=== PATIENT | female | born 1990 | race American Indian/Alaskan Native ===

== ENCOUNTER 2017-03-08 12:07 | Emergency (ER) | payer MEDICAID ==
[2017-03-08 12:11] VITALS: BMI 29.7
[2017-03-08 12:14] VITALS: BP 97/70; PULSE 98; RESP 18; TEMP 98.6; O2SAT 99
[2017-03-08] MEDS ORDERED: Penicillin G Benzathine 1.2 Mill Unit/2 ml Syr IM STA (12:59)
--- NOTE | 2017-03-08 13:14 | ED PDOC ---
Arrival/HPI - General Chief Complaint: ENT Problem Time Seen by Provider: 03/08/17 12:29 Historian: Patient - History of Present Illness Narrative History of Present Illness (Text): 03/08/17 13:14 A 26 year old female presents to the emergency department complaining of sore throat for a couple of days. Patient denies of any fever, chills, shortness of breath, rash, or any other complaints. PMD [place] Time/Duration: < week (couple of days) Symptom Onset: Sudden Symptom Course: Unchanged Past Medical History - Provider Review Nursing Documentation Reviewed: Yes - Infectious Disease Hx of Infectious Diseases: None - Psychiatric Hx Substance Use: No - Anesthesia Hx Anesthesia: No Family/Social History - Physician Review Nursing Documentation Reviewed: Yes Family/Social History: No Known Family HX Smoking Status: Never Smoked Hx Alcohol Use: No Hx Substance Use: No Allergies/Home Meds Allergies/Adverse Reactions: Allergies No Known Allergies Allergy (Verified 03/08/17 12:11) Review of Systems - Physician Review All systems were reviewed & negative as marked: Yes - Review of Systems Constitutional: Normal. absent: Fatigue, Weight Change, Fevers, Night Sweats ENT: Normal, Sore Throat. absent: Tinnitus, Rhinorrhea, Epistaxis, Sinus Congestion Respiratory: Normal. absent: SOB, Cough, Sputum, Wheezing Cardiovascular: Normal. absent: Chest Pain, Palpitations, Edema Skin: Normal. absent: Rash, Pruritis, Skin Lesions, Laceration Physical Exam Vital Signs Reviewed: Yes Vital Signs Temp Pulse Resp BP Pulse Ox 03/08/17 12:13 98.6 F 98 H 18 97/70 L 99 Temperature: Afebrile Blood Pressure: Normal Pulse: Regular Respiratory Rate: Normal Appearance: Positive for: Well-Appearing Pain Distress: None Mental Status: Positive for: Alert and Oriented X 3 - Systems Exam Head: Present: Atraumatic, Normocephalic Pupils: Present: PERRL Extroacular Muscles: Present: EOMI Conjunctiva: Present: Normal Ears: Present: Normal, NORMAL TM, Normal Canal. No: Erythema Mouth: Present: Moist Mucous Membranes Pharnyx: Present: Normal, ERYTHEMA (both tonsils), EXUDATE, TONSILS ENLARGED, Other (moderate edema to both tonsils). No: Uvular Deviation Respiratory/Chest: Present: Clear to Auscultation, Good Air Exchange. No: Respiratory Distress, Accessory Muscle Use, Wheezes, Rales, Rhonchi Cardiovascular: Present: Regular Rate and Rhythm, Normal S1, S2. No: Murmurs Neurological: Present: GCS=15, CN II-XII Intact Skin: Present: Warm, Dry, Normal Color. No: Rashes Medical Decision Making ED Course and Treatment: 03/08/17 13:18 Impression: 26 year old female with sore throat. Plan: -- Decardon IM -- Motrin PO -- Bicillin IM -- Reassess and disposition Progress Notes: Diagnosis of pharyngitis d/w the patient. Follow up with primary care physician in 1-2 days without fail. Advised to take medication as prescribed. Return to the emergency room at any time for any new or worsening symptoms. Patient states she fully agrees with and understands discharge instructions. States that she agrees with the plan and disposition. Verbalized and repeated discharge instructions and plan. I have given the patient opportunity to ask any additional questions. - Medication Orders Current Medication Orders: Discontinued Medications Dexamethasone (Decadron Inj) 10 mg IM STAT STA Stop: 03/08/17 13:00 Last Admin: 03/08/17 13:20 Dose: 10 mg IM Administration Charges Document 03/08/17 13:20 AD (Rec: 03/08/17 13:21 AD [id number]) Injection Site MAR Injection Site Left Gluteus Kurt Charges for Administration # of IM Administrations 1 Ibuprofen (Motrin Tab) 600 mg PO STAT STA Stop: 03/08/17 13:01 Last Admin: 03/08/17 13:20 Dose: Not Given Non-Admin Reason: Patient Refused Penicillin G Benzathine (Bicillin L-A Inj) 1,200,000 units IM STAT STA PRN Reason: Protocol Stop: 03/08/17 13:00 Last Admin: 03/08/17 13:37 Dose: 1,200,000 units IM Administration Charges Document 03/08/17 13:37 AD (Rec: 03/08/17 13:38 AD [id number]) Injection Site MAR Injection Site Right Gluteus Kurt Charges for Administration # of IM Administrations 1 - PA / REPORTING COORDINATOR / Resident Statement MD/DO has reviewed & agrees with the documentation as recorded. - Scribe Statement The provider has reviewed the documentation as recorded by the Jennifer Martin Provider Scribe Attestation: All medical record entries made by the Scribe were at my direction and personally dictated by me. I have reviewed the chart and agree that the record accurately reflects my personal performance of the history, physical exam, medical decision making, and the department course for this patient. I have also personally directed, reviewed, and agree with the discharge instructions and disposition. Disposition/Present on Arrival - Present on Arrival Any Indicators Present on Arrival: No History of DVT/PE: No History of Uncontrolled Diabetes: No Urinary Catheter: No History of Decub. Ulcer: No History Surgical Site Infection Following: None - Disposition Have Diagnosis and Disposition been Completed?: Yes Diagnosis: Pharyngitis Disposition: HOME/ ROUTINE Disposition Time: 13:12 Patient Plan: Discharge Condition: STABLE Discharge Instructions (ExitCare): Pharyngitis (ED) Print Language: MARTINIQUAIS Additional Instructions: Thank you for letting us take care of you today. You were treated for pharyngitis. The emergency medical care you received today was directed at your acute symptoms. If you were prescribed any medication, please fill it and take as directed. It may take several days for your symptoms to resolve. Return to the Emergency Department if your symptoms worsen, do not improve, or if you have any other problems. Please contact your doctor in 2 days for re-evaluation and follow up. Bring any paperwork you were given at discharge with you along with any medications you are taking to your follow up visit. Our treatment cannot replace ongoing medical care by a primary care provider (PCP) outside of the emergency department. Thank you for allowing the [facility] team to be part of your care today. Prescriptions: Ibuprofen [Motrin Tab] 600 mg PO QID PRN #20 tab PRN Reason: Pain, Moderate (4-7) Forms: [employer] [facility] (Yakut), WORK NOTE, SCHOOL NOTE
== END 2017-03-08 13:38 | disposition home or self-care (01) ==
LOC: ED 12:07
DX: J02.9 Acute pharyngitis, unspecified (principal)
CPT/HCPCS: 96372; 99283; J0561; J1100

== ENCOUNTER 2018-08-02 15:30 | Outpatient (CLI) | payer MEDICAID | END 2018-08-02 15:31 | disposition home or self-care (01) | LOC: CARDIO 15:30 ==

== ENCOUNTER 2018-10-11 12:44 | Inpatient (IN) | payer MEDICAID ==
[2018-10-11 12:52] VITALS: BMI 29.7
[2018-10-11] MEDS ORDERED: Sodium Chloride 0.9% 1,000 ML IV STA (13:09)
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
[2018-10-11 15:12] LABS: BASO # 0.01 K/mm3 (0.0-2.0); BASO % 0.3 % (0.0-3.0); HEMOGLOBIN 10.2 g/dL (12.0-16.0); LYMPH # 1.1 (1.2-3.4); LYMPH % 37.4 % (22.0-35.0); MEAN CELL VOLUME 84.8 fl (80.0-105.0); MEAN CORPUSCULAR HEMOGLOBIN 26.4 pg (25.0-35.0); MEAN CORPUSCULAR HGB CONC 31.1 g/dl (31.0-37.0); MEAN PLATELET VOLUME 10.2 fl (7.0-11.0); MONO # 0.1 (0.1-0.6); MONO % 3.9 % (1.0-6.0); RBC 3.87 10^6/uL (3.5-6.1); RED CELL DISTRIBUTION WIDTH 14.7 % (11.5-14.5); WHITE BLOOD COUNT 3.1 10^3/uL (4.5-11.0)
[2018-10-11 15:28] LABS: URINE BILIRUBIN NEGATIVE (NEGATIVE); URINE BLOOD NEGATIVE (NEGATIVE); URINE GLUCOSE (UA) NEGATIVE (NEGATIVE); URINE LEUKOCYTE ESTERASE TRACE Leu/uL (NEGATIVE); URINE PROTEIN TRACE mg/dL (<30 mg/dL); URINE UROBILINOGEN 0.2 E.U./dL (<1 E.U./dL)
[2018-10-11 15:29] LABS: URINE APPEARANCE SL CLOUDY (CLEAR); URINE COLOR YELLOW (YELLOW)
[2018-10-11 15:34] LABS: ALB/GLOB RATIO 1.2 (1.1-1.8); BLOOD UREA NITROGEN 15 mg/dL (7-21); CALCIUM 9.5 mg/dL (8.4-10.5); GFR NON-AFRICAN AMERICAN > 60
[2018-10-11 15:35] LABS: HCG,QUALITATIVE URINE NEGATIVE (NEGATIVE); URINE BACTERIA FEW /hpf; URINE WBC 0 - 2 /hpf (0-6)
[2018-10-11 15:55] LABS: BARBITURATES, UR NEGATIVE (NEGATIVE); BENZODIAZEPINES, UR NEGATIVE (NEGATIVE); OPIATES, UR NEGATIVE (NEGATIVE); PHENCYCLIDINE, UR NEGATIVE (NEGATIVE)
--- NOTE | 2018-10-11 16:00 | RAD ---
HISTORY: psych, overdose COMPARISON: None available TECHNIQUE: Chest, one view. FINDINGS: LUNGS: No focal consolidation. Please note that chest x-ray has limited sensitivity for the detection of pulmonary masses. PLEURA: No significant pleural effusion identified. No definite pneumothorax . CARDIOVASCULAR: The cardiomediastinal silhouette appears within normal limits of size. No significant atherosclerotic calcification present. OSSEOUS STRUCTURES: No acute osseous abnormality identified. VISUALIZED UPPER ABDOMEN: Unremarkable. OTHER FINDINGS: None. IMPRESSION: No acute findings.
[2018-10-11 16:20] LABS: INR 1.13; PARTIAL THROMBOPLASTIN TIME 27.6 Seconds (26.9-38.3); PROTHROMBIN TIME 12.5 SECONDS (9.4-12.5)
[2018-10-11 16:24] LABS: VENOUS BLOOD GAS BASE EXCESS -0.2 mmol/L (0.0-2.0); VENOUS BLOOD GAS PO2 48 mm/Hg (30-55); VENOUS BLOOD PH 7.39 (7.32-7.43)
[2018-10-11 16:46] LABS: ALT/SGPT 12 U/L (7-56); AST/SGOT 47 U/L (14-36)
[2018-10-11 18:06] VITALS: O2SAT 99
[2018-10-11 20:07] LABS: VENOUS BLOOD GAS BASE EXCESS -0.8 mmol/L (0.0-2.0); VENOUS BLOOD GAS PO2 43 mm/Hg (30-55); VENOUS BLOOD PH 7.41 (7.32-7.43)
[2018-10-11] MEDS ORDERED: DiphenhydrAMINE 50 mg/ml Inj IM PRN (20:20)
--- NOTE | 2018-10-11 22:30 | PCM.BM ---
<Opal Hancock - Last Filed: 10/11/18 22:27> Treatment Plan Problems - Problems identified on initial assessmt High Risk Suicide Date Initiated: 10/11/18 Time Initiated: 22:28 Assessment reference: NA Status: Active Suicidal Ideation Date Initiated: 10/11/18 Time Initiated: 22:32 Assessment reference: NA Status: Active Ineffective Coping Date Initiated: 10/11/18 Time Initiated: 22:32 Assessment reference: NA Status: Active Hopelessness/helplessness Date Initiated: 10/11/18 Time Initiated: 22:31 Assessment reference: NA Status: Active Mecication Nonadhereance Date Initiated: 10/11/18 Time Initiated: 22:31 Assessment reference: NA Status: Active Self care deficit Date Initiated: 10/11/18 Time Initiated: 22:31 Assessment reference: NA Status: Active Treatment assets and liabiliti Patient Assests: educated, ADL independent, cognitively intact - Milieu Protocol Maintain good personal hygiene: daily Encourage regular showers, daily Remind patient to perform daily oral care, daily Assist patient to perform ADL's, every other day Encourage regular showers, every other day Remind patient to perform daily oral care Maintain personal safety: every other day Educate patient to report safety concerns to staff, every other day Monitor environment for contraband/sharps Medication safety: Monitor for expected outcome, potential side effects: every other day, Assess barriers to learning: every other day, Assess readiness for medication education: every other day <Laura River - Last Filed: 10/12/18 12:26> - Diagnosis (1) Mood disorder Status: Acute Interventions: 10/12/18 12:26 Psychoeducation Psychopharmacology/adjustment of medications as needed/ monitoring possible side effects Monitor blood level of mood stabilizers Evaluate pt on daily basis Compliance with medications and follow up appointments Suicide and homicide risk assessment and prevention, coping strategies, safety plan Relapse prevention Reduction of symptoms Improve functional status Family involvement As outpatient: cognitive behavioral therapy (2) Borderline personality disorder Status: Acute Interventions: 10/12/18 12:26 Psychoeducation Psychopharmacology/adjustment of medications as needed/ monitoring possible side effects Evaluate pt on daily basis Compliance with medications and follow up appointments Suicide and homicide risk assessment and prevention, coping strategies, safety plan Relapse prevention Family involvement As outpatient: Transference-focused psychotherapy/dialectical behavioral therapy/schema therapy Mindfulness skills
[2018-10-12 08:13] LABS: GLUCOSE,FASTING 87 mg/dL (65-110); HDL CHOLESTEROL 58 mg/dL (29-60)
[2018-10-12 08:23] LABS: LDL CHOLESTEROL 80 mg/dL (0-129)
--- NOTE | 2018-10-12 11:44 | CARD ---
APPROVED REPORT Date of service: 10/11/2018 EKG Measurement Heart [id number] <Conclusion> Normal sinus rhythm Nonspecific T wave abnormality Abnormal ECG
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
[2018-10-13 07:02] VITALS: RESP 20
[2018-10-13 07:33] LABS: HEMOGLOBIN 10.3 g/dL (12.0-16.0); MEAN CELL VOLUME 84.7 fl (80.0-105.0); MEAN CORPUSCULAR HEMOGLOBIN 26.2 pg (25.0-35.0); MEAN CORPUSCULAR HGB CONC 30.9 g/dl (31.0-37.0); MEAN PLATELET VOLUME 9.5 fl (7.0-11.0); RBC 3.93 10^6/uL (3.5-6.1); RED CELL DISTRIBUTION WIDTH 14.6 % (11.5-14.5); WHITE BLOOD COUNT 3.6 10^3/uL (4.5-11.0)
[2018-10-13 07:55] LABS: ALB/GLOB RATIO 1.3 (1.1-1.8); ALBUMIN 3.9 g/dL (3.0-4.8); ALT/SGPT 11 U/L (7-56); AST/SGOT 32 U/L (14-36); BLOOD UREA NITROGEN 19 mg/dL (7-21); CALCIUM 9.2 mg/dL (8.4-10.5); GFR NON-AFRICAN AMERICAN > 60
--- NOTE | 2018-10-13 15:42 | PCM.PYCHPN ---
Psychiatric Progress Note - Psychiatric Progress Note Patient seen today, length of contact: 30 minutes Patient Chief Complaint: "I do not want to take medication on regular basis, if it is possible can you prescribed medication as needed?" Problems Identified/Issues Discussed: Previous history, symptoms, medications, risk/benefits/alternatives of medications, coping strategies, suicide prevention. Medical Problems: See HPI Diagnostic Results: 10/13/18 07:15 10/13/18 07:15 Lab Results 10/13/18 07:15: Sodium 140, Potassium 4.1, Chloride 109 H, Carbon Dioxide 26, Anion Gap 9 L, BUN 19, Creatinine 0.7, Est GFR ( Amer) > 60, Est GFR (Non-Af Amer) > 60, Random Glucose 93, Calcium 9.2, Total Bilirubin 0.3, AST 32, ALT 11, Alkaline Phosphatase 50, Total Protein 6.8, Albumin 3.9, Globulin 3.0, Albumin/Globulin Ratio 1.3 10/13/18 07:15: WBC 3.6 L, RBC 3.93, Hgb 10.3 L, Hct 33.3 L, MCV 84.7, MCH 26.2, MCHC 30.9 L, RDW 14.6 H, Plt Count 278, MPV 9.5 10/12/18 07:40: RPR Nonreactive 10/12/18 07:40: TSH 3rd Generation 1.15 10/12/18 07:40: Fasting Glucose 87, Triglycerides 57, Cholesterol 166, LDL Cholesterol Direct 80, HDL Cholesterol 58 10/11/18 20:00: pO2 43, VBG pH 7.41, VBG pCO2 37.0 L, VBG HCO3 23.5, VBG Total CO2 24.6, VBG O2 Sat (Calc) 79.4 H, VBG Base Excess -0.8 L, VBG Potassium 3.6, Glucose 91, Lactate 1.0, FiO2 21.0, Sodium 139.0, Chloride 108.0 H, Venous Blood Potassium 3.6 10/11/18 17:30: Salicylates 17, Acetaminophen 27.0 H 10/11/18 16:15: pO2 48, VBG pH 7.39, VBG pCO2 41.0, VBG HCO3 24.8, VBG Total CO2 26.1, VBG O2 Sat (Calc) 85.9 H, VBG Base Excess -0.2 L, VBG Potassium 3.6, Glucose 97, Lactate 2.0, FiO2 21.0, Crit Value Called To Ana Rosa tai, Crit Value Called By Noy, Blood Gas Notified Time 1624, Sodium 139.0, Chloride 109.0 H, Venous Blood Potassium 3.6 10/11/18 16:06: PT 12.5, INR 1.13, APTT 27.6 10/11/18 15:20: Urine Opiates Screen Negative, Urine Methadone Screen Negative, Ur Barbiturates Screen Negative, Ur Phencyclidine Scrn Negative, Ur Amphetamines Screen Negative, U Benzodiazepines Scrn Negative, U Oth Cocaine Metabols Negative, U Cannabinoids Screen Negative 10/11/18 15:20: Urine Color Yellow, Urine Appearance Sl cloudy, Urine pH 7.0, Ur Specific [place] 1.025, Urine Protein Trace H, Urine Glucose (UA) Negative, Urine Ketones Negative, Urine Blood Negative, Urine Nitrate Negative, Urine Bilirubin Negative, Urine Urobilinogen 0.2, Ur Leukocyte Esterase Trace H, Urine RBC 1 - 3 H, Urine WBC 0 - 2, Ur Epithelial Cells 6 - 8 H, Urine Bacteria Few, Urine Other Uyeast, Urine HCG, Qual Negative 10/11/18 15:07: Alcohol, Quantitative < 10 10/11/18 15:07: Salicylates 17, Acetaminophen 34.0 H 10/11/18 15:07: Sodium 142, Potassium 3.9, Chloride 107, Carbon Dioxide 20 L, Anion Gap 19, BUN 15, Creatinine 0.6 L, Est GFR ( Amer) > 60, Est GFR (Non-Af Amer) > 60, Random Glucose 100, Calcium 9.5, Magnesium 1.6 L, Total Bilirubin 0.4, AST 47 H, ALT 12, Alkaline Phosphatase 46, Total Creatine Kinase 228, Total Protein 7.2, Albumin 4.0, Globulin 3.2, Albumin/Globulin Ratio 1.2 10/11/18 15:07: WBC 3.1 L, RBC 3.87, Hgb 10.2 L, Hct 32.8 L, MCV 84.8, MCH 26.4, MCHC 31.1, RDW 14.7 H, Plt Count 349, MPV 10.2, Neut % (Auto) 58.4, Lymph % (Auto) 37.4 H, Wolfe % (Auto) 3.9, Eos % (Auto) 0.0 L, Baso % (Auto) 0.3, Lymph # (Auto) 1.1 L, Wolfe # (Auto) 0.1, Eos # (Auto) 0.0, Baso # (Auto) 0.01, Absolute Neuts (auto) 1.78 Vital Signs Temp Pulse Resp BP Pulse Ox 10/13/18 07:02 98.3 F 85 20 111/58 L 10/12/18 06:56 97.8 F 98 H 18 96/60 L 10/11/18 22:12 98.8 F 87 18 125/82 99 10/11/18 18:03 98.0 F 66 19 99 10/11/18 18:02 98.6 F 83 19 112/69 100 10/11/18 15:00 98.4 F 89 19 123/78 98 10/11/18 12:52 98.0 F 91 H 19 137/80 98 DSM 5 Symptoms Update: shortly patient is a 28 y/o F brought in by mother for use of excredrin and v odka, r/o suicidal ideation. pt has h/o borderline personality disorder, possible bipolar disorder. pt has multiple psych admissions in the past, h/o being admitted to [facility] August 2016. pt was uncooperative in ED, refused to be examined, combative. pt signed consent for treatment and was admitted for observation/stabilization of possible depression, possible s/p overdose on excedrine, laxatives and ? melatonin. Please see admission note for more detailed information. Patient was seen today and the treatment team meeting, patient presented with improved personal hygiene, affect was brighter, patient has good ADLs. As per staff report vision started to flirt with other patient W,C. Was advised to monitor patient closely. Patient reported that she does not want to be on medications and she would like to have a "holistic approach" patient reported that she is signed out for yoga classes already, patient reported that her mother is supportive, patient has s ome future oriented plans to return back to work. Collateral information was obtained from patient's mother, please see public health social worker notes for more detailed information, shortly patient was doing well for the last year, for the last 6 weeks started to talk to her biological mother who seems to be very verbally abusive, patient was stressed out at work, working long hours, at the same time questionable [employer] incident triggered patient and patient tried to overdose on pills. Patient reported that she does not want to be on any scheduled medications, this business writer offered patient trazodone as needed patient agreed to try this medication. So far patient does not have any behavioral incidents, no aggression, no agitation. Impression: Mood disorder NOS Borderline personality disorder as per history Medication Change: Yes (Risperdal/Paxil discontinued, trazodone started) Medical Record Reviewed: Yes Consults ordered or reviewed: Medical consult appreciated Mental Status Examination - Cognitive Function Orientation: Person, Place, Situation Memory: Intact Attention: WNL Concentration: WNL Association: WNL Fund of Knowledge: WNL - Mood Mood: Depressed - Affect Affect: Other (expanded and inappropriate) - Formal Thought Process Formal Thought Process: No Impairment - Suicidal Ideation Suicidal Ideation: No - Homicidal Ideation Homicidal Ideation: No Goal/Treatment Plan - Goal/Treatment Plan Need for Continued Stay: Remain at risks for inpatient hospitalization, Severe depression anxiety, Discharge may exacerbated symptoms, Severe functional impairment Progress Toward Problem(s) and Goals/Treatment Plan: Milieu/structure/supportive therapy SW consultation for discharge plan and social issues Med management PRN meds collaterals from mother paxil discontinued Risperdal discontinued Trazodone 50 mg at nighttime for depression and insomnia Vistaril as needed for anxiety Follow up on labs Will monitor closely Pt was educated about risk/benefits and alternatives of medications, coping strategies (safety plan, suicide prevention), relapse prevention, importance of follow up with psychiatrist and therapist, stay away from drugs/alcohol/smoking Estimated Date of D/C: 10/14/18
--- NOTE | 2018-10-13 16:34 | PCM.BM ---
Treatment Plan Problems - Problems identified on initial assessmt High Risk Suicide Date Initiated: 10/11/18 Time Initiated: 22:28 Assessment reference: NA Status: Active Priority: 1 Suicidal Ideation Date Initiated: 10/11/18 Time Initiated: 22:32 Assessment reference: NA Status: Active Priority: 2 Ineffective Coping Date Initiated: 10/11/18 Time Initiated: 22:32 Assessment reference: NA Status: Active Priority: 3 Hopelessness/helplessness Date Initiated: 10/11/18 Time Initiated: 22:31 Assessment reference: NA Status: Active Priority: 4 Mecication Nonadhereance Date Initiated: 10/11/18 Time Initiated: 22:31 Assessment reference: NA Status: Active Priority: 5 Self care deficit Date Initiated: 10/11/18 Time Initiated: 22:31 Assessment reference: NA Status: Active Priority: 6 Treatment assets and liabiliti Patient Assests: educated, ADL independent, cognitively intact - Milieu Protocol Maintain good personal hygiene: daily Encourage regular showers, daily Remind patient to perform daily oral care, daily Assist patient to perform ADL's, every other day Encourage regular showers, every other day Remind patient to perform daily oral care Maintain personal safety: every other day Educate patient to report safety concerns to staff, every other day Monitor environment for contraband/sharps Medication safety: Monitor for expected outcome, potential side effects: every other day, Assess barriers to learning: every other day, Assess readiness for medication education: every other day Milieu Narrative: Milieu/structure/supportive therapy SW consultation for discharge plan and social issues Med management PRN meds collaterals from mother paxil discontinued Risperdal discontinued Trazodone 50 mg at nighttime for depression and insomnia Vistaril as needed for anxiety Follow up on labs Will monitor closely Pt was educated about risk/benefits and alternatives of medications, coping strategies (safety plan, suicide prevention), relapse prevention, importance of follow up with psychiatrist and therapist, stay away from drugs/alcohol/smoking Family Contact Family involvement: Family/SO is involved Family contact: Patient agrees to contact Family contact name: Valorie Hwang(mother) Family contacted how many times per week?: 2 Discharge/Continuing Care - Education Needs Education Needs: Patient Medication, Patient Diagnosis/Disease Process, Patient Coping Skills, Patient Community resources, Patient Activities of Daily Living, Patient Nutrition, Patient Uses of Medical Equipment, Patient Health Practices/Safety, Patient Personal Hygiene/Grooming, Patient Aftercare Safety Plan - Discharge Discharge Criteria: Tolerates medication w/o severe side effects, Free of Suicidal thoughts, Free of agitation, Normal sleep pattern, Ability to care for self, Reduction of target symptoms Discharge to:: Home - Treatment Team Participation Patient/Family/SO Statement: Milieu/structure/supportive therapy SW consultation for discharge plan and social issues Med management PRN meds collaterals from mother paxil discontinued Risperdal discontinued Trazodone 50 mg at nighttime for depression and insomnia Vistaril as needed for anxiety Follow up on labs Will monitor closely Pt was educated about risk/benefits and alternatives of medications, coping strategies (safety plan, suicide prevention), relapse prevention, importance of follow up with psychiatrist and therapist, stay away from drugs/alcohol/smoking
[2018-10-14 07:06] VITALS: BP 91/58; PULSE 79; TEMP 98
--- NOTE | 2018-10-14 12:16 | CP.PCM.CON ---
<Iftikhar Alfred - Last Filed: 10/14/18 20:28> History of Present Illness - History of Present Illness History of Present Illness: Iftikhar Alfred DO PGY1 - Internal Medicine Patient is a 28F w/ a PMH of pervious suicide attempts, borderline personality disorder; bipolar disorder admitted to in psych 2/2 suicidal attempt. Medicine is consulted for evaluation of back pain. Patient was seen this morning at bedside with Dr. Hanna Alfred, Dr. Jacqueline Valentine and Psych Unit Staff present. Patient reported that on 08/20 she had liposuction procedure in [place]; She subsequently reported that post procedure she has been feeling a dull pressure like sensation of "fluid accumulating" in her back. Patient reported that this is normal postoperative change for liposuction and her surgeon has told her to wear a compressive dressing and get lymphatic massages whenever she experiences these sensations. Upon evaluation she denies any perineal numbness/tingling, weakness, incontinence, chest pain, sob, abd pain, n/v/d/c. Remainder 12 system neagative PMH: Denies PSH: Liposuction, Tonsillectomy, Social: Occasional EtOH, Denies smoking/ illicit drug use Fam: Unknown, pt. adopted PMD: Ivan Review of Systems - Review of Systems All systems: reviewed and no additional remarkable complaints except Review of Systems: as per HPI Past Patient History - Infectious Disease Hx of Infectious Diseases: None - Past Medical History & Family History Past Medical History?: Yes - Past Social History Smoking Status: Never Smoked - CARDIAC Hx Cardiac Disorders: No - PULMONARY Hx Respiratory Disorders: No - NEUROLOGICAL Hx Neurological Disorder: Yes (Psuedotumor cerebri.) - HEENT Hx HEENT Problems: Yes (Chronic tonsilitis) - RENAL Hx Chronic Kidney Disease: No - ENDOCRINE/METABOLIC Hx Endocrine Disorders: No - HEMATOLOGICAL/ONCOLOGICAL Hx Blood Disorders: No - INTEGUMENTARY Hx Dermatological Problems: Yes Hx Jin: Yes (Left hand skingrafts) - MUSCULOSKELETAL/RHEUMATOLOGICAL Hx Fractures: Yes (Left hand) - GASTROINTESTINAL Hx Gastrointestinal Disorders: Yes (Hx gastric lap band) - GENITOURINARY/GYNECOLOGICAL Hx Genitourinary Disorders: Yes - PSYCHIATRIC Hx Substance Use: No - SURGICAL HISTORY Hx Tonsillectomy: Yes (07/24/2017) - ANESTHESIA Hx Anesthesia: Yes Hx Anesthesia Reactions: No Hx Malignant Hyperthermia: No Meds Home Medications: Home Medication List Medication Instructions Recorded Confirmed Type hydrOXYzine Pamoate [Vistaril] 25 mg PO DAILY PRN #14 cap 10/14/18 Rx traZODone [Desyrel] 50 mg PO HS #14 tab 10/14/18 Rx Allergies/Adverse Reactions: Allergies Allergy/AdvReac Type Severity Reaction Status Date / Time No Known Allergies Allergy Verified 10/11/18 20:19 - Medications Medications: Current Medications Chlorpromazine (Thorazine) 50 mg PO Q6H PRN; Protocol PRN Reason: Agitation Chlorpromazine (Thorazine) 50 mg IM Q6H PRN; Protocol PRN Reason: Agitation Diphenhydramine HCl (Benadryl) 50 mg IM Q6H PRN PRN Reason: Allergy symptoms Diphenhydramine HCl (Benadryl) 50 mg PO Q6 PRN PRN Reason: Allergy symptoms Hydroxyzine Pamoate (Vistaril) 25 mg PO Q8 PRN; Protocol PRN Reason: Anxiety Trazodone HCl (Desyrel) 50 mg PO HS JAJA Last Admin: 10/13/18 21:20 Dose: 50 mg Zaleplon (Sonata) 5 mg PO HS PRN PRN Reason: Insomnia Results - Vital Signs Recent Vital Signs: Last Vital Signs Temp 98.0 F 10/14/18 07:06 Pulse 79 10/14/18 07:06 Resp 20 10/14/18 07:06 BP 91/58 L 10/14/18 07:06 Pulse Ox 99 10/11/18 22:12 - Labs Result Diagrams: 10/13/18 07:15 10/13/18 07:15 Assessment & Plan - Assessment and Plan (Free Text) Assessment: Upon evaluation, Patient would not allow team to perform physical examination. She was advised that back pain continues, she should be further monitored and managed by her PMD, Dr. Love. She was also told her postoperative care regarding liposuction should also be managed by her plastic surgeon or her primary. Patient verbalized understanding of reccomendations. Patient was seen, evaluated, and examined w/ Dr. Hanna Alfred DO PGY1 - Date & Time Date: 10/14/18 Time: 12:17 <Hanna Alfred R - Last Filed: 10/15/18 13:25> Results - Vital Signs Recent Vital Signs: Last Vital Signs Temp 98.0 F 10/14/18 07:06 Pulse 79 10/14/18 07:06 Resp 20 10/14/18 07:06 BP 91/58 L 10/14/18 07:06 Pulse Ox 99 10/11/18 22:12 - Labs Result Diagrams: 10/13/18 07:15 10/13/18 07:15 Attending/Attestation - Attestation I have personally seen and examined this patient.: Yes I have fully participated in the care of the patient.: Yes I have reviewed all pertinent clinical information: Yes Notes (Text): Patient seen and examined by me with resident at approximately 11:40AM on 10/14/18. Case including HPI, physical exam, and assessment and plan discussed wi th resident. Agree with above with following additions/corrections. Patient is a 28 year old female with past medical history significant for suicide attempts, borderline personality disorder, and possible bipolar disorder that presented to the emergency room for possible suicide attempt. Patient was admitted to the psychiatric unit. Medicine team consulted for back pain s/p liposuction. Patient states she is feeling ok. States she is having some back pain and feels it is from her liposuction. Patient states that she feels "fluid is accumulating." Patient states she is suppose to wear her abdominal binder for this. States she also feels there is some "fibrosis and scar tissue" on her abdomen. Patient has no difficulty ambulating. Patient denies any radiation of pain. No nausea, vomiting, or abdominal pain. No headaches or dizziness. No fevers or chills. No dysuria. No diarrhea or constipation. 12 point review of systems reviewed by me. Please see above HPI, all other systems are negative. Physical exam: General: Awake and alert sitting up in chair in no acute distress Central nervous system: AAO X 3 Patient refused rest of exam. Assessment and plan: 1. Back pain. Refused exam. Patient ambulating with no difficulty. Patient advised to follow up with her PMD Dr. Luna for further work up and treatment if continues. Patient states she is going home today. 2. Recent liposuction. Patient feels like she may have some "fibrosis and fluid accumulation." Patient was advised to follow up with the person she had liposuction with or her primary care doctor. Continue abdominal binder. 3. History or pseudotumor cerebri. Neurologist consulted. Care per neurology team. 4. Mood disorder. Borderline personality. Possible suicidal attempt. Care as per primary team. Case was discussed in detail with the patient. Patient states she is going home. Patient should follow up with her primary care doctor upon discharge. Thank you for allowing us to participate in the care of your patient. We will sign off.
--- NOTE | 2018-10-14 13:27 | PCM.PYCHDC ---
Mental Status Examination - Mental Status Examination Orientation: Person, Place, Situation, Time Memory: Intact Mood: Neutral Affect: Constricted Speech: Appropriate Attention: WNL Concentration: WNL Association: WNL Fund of Knowledge: WNL Formal Thought Process: No Impairment Description of patient's judgement and insight: Pt has improved insight into mental and medical illness, pt was compliant with medications and unit rules and regulations, pt was attending group therapy sessions, was calm, cooperative, socially appropriate, no behavioral incidents, no agitation, no aggression. Psychotic Thoughts and Behaviors: Pt denied v/a/t hallucinations, denied paranoid ideations, pt does not appear to be psychotic, and thought process is goal directed. Suicidal Ideation: No Current Homicidal Ideation?: No Plan: pt adamantly denied thoughts of harming self or others denied intent or plan. Discharge Plan - Discharge Note Reason for Hospitalization: Depression, status post overdose on medications. Psychiatric History (includes Medical, Family, Personal Hx): See HPI Laboratory Data: 10/13/18 07:15 10/13/18 07:15 Lab Results 10/13/18 07:15: Sodium 140, Potassium 4.1, Chloride 109 H, Carbon Dioxide 26, Anion Gap 9 L, BUN 19, Creatinine 0.7, Est GFR ( Amer) > 60, Est GFR (Non-Af Amer) > 60, Random Glucose 93, Calcium 9.2, Total Bilirubin 0.3, AST 32, ALT 11, Alkaline Phosphatase 50, Total Protein 6.8, Albumin 3.9, Globulin 3.0, Albumin/Globulin Ratio 1.3 10/13/18 07:15: WBC 3.6 L, RBC 3.93, Hgb 10.3 L, Hct 33.3 L, MCV 84.7, MCH 26.2, MCHC 30.9 L, RDW 14.6 H, Plt Count 278, MPV 9.5 10/12/18 07:40: RPR Nonreactive 10/12/18 07:40: TSH 3rd Generation 1.15 10/12/18 07:40: Fasting Glucose 87, Triglycerides 57, Cholesterol 166, LDL Cholesterol Direct 80, HDL Cholesterol 58 10/11/18 20:00: pO2 43, VBG pH 7.41, VBG pCO2 37.0 L, VBG HCO3 23.5, VBG Total CO2 24.6, VBG O2 Sat (Calc) 79.4 H, VBG Base Excess -0.8 L, VBG Potassium 3.6, Glucose 91, Lactate 1.0, FiO2 21.0, Sodium 139.0, Chloride 108.0 H, Venous Blood Potassium 3.6 10/11/18 17:30: Salicylates 17, Acetaminophen 27.0 H 10/11/18 16:15: pO2 48, VBG pH 7.39, VBG pCO2 41.0, VBG HCO3 24.8, VBG Total CO2 26.1, VBG O2 Sat (Calc) 85.9 H, VBG Base Excess -0.2 L, VBG Potassium 3.6, Glucose 97, Lactate 2.0, FiO2 21.0, Crit Value Called To Ana Rosa tai, Crit Value Called By Noy, Blood Gas Notified Time 1624, Sodium 139.0, Chloride 109.0 H, Venous Blood Potassium 3.6 10/11/18 16:06: PT 12.5, INR 1.13, APTT 27.6 10/11/18 15:20: Urine Opiates Screen Negative, Urine Methadone Screen Negative, Ur Barbiturates Screen Negative, Ur Phencyclidine Scrn Negative, Ur Amphetamines Screen Negative, U Benzodiazepines Scrn Negative, U Oth Cocaine Metabols Negative, U Cannabinoids Screen Negative 10/11/18 15:20: Urine Color Yellow, Urine Appearance Sl cloudy, Urine pH 7.0, Ur Specific [place] 1.025, Urine Protein Trace H, Urine Glucose (UA) Negative, Urine Ketones Negative, Urine Blood Negative, Urine Nitrate Negative, Urine Bilirubin Negative, Urine Urobilinogen 0.2, Ur Leukocyte Esterase Trace H, Urine RBC 1 - 3 H, Urine WBC 0 - 2, Ur Epithelial Cells 6 - 8 H, Urine Bacteria Few, Urine Other Uyeast, Urine HCG, Qual Negative 10/11/18 15:07: Alcohol, Quantitative < 10 10/11/18 15:07: Salicylates 17, Acetaminophen 34.0 H 10/11/18 15:07: Sodium 142, Potassium 3.9, Chloride 107, Carbon Dioxide 20 L, Anion Gap 19, BUN 15, Creatinine 0.6 L, Est GFR ( Amer) > 60, Est GFR (Non-Af Amer) > 60, Random Glucose 100, Calcium 9.5, Magnesium 1.6 L, Total Bilirubin 0.4, AST 47 H, ALT 12, Alkaline Phosphatase 46, Total Creatine Kinase 228, Total Protein 7.2, Albumin 4.0, Globulin 3.2, Albumin/Globulin Ratio 1.2 10/11/18 15:07: WBC 3.1 L, RBC 3.87, Hgb 10.2 L, Hct 32.8 L, MCV 84.8, MCH 26.4, MCHC 31.1, RDW 14.7 H, Plt Count 349, MPV 10.2, Neut % (Auto) 58.4, Lymph % (Aut o) 37.4 H, [place] % (Auto) 3.9, Eos % (Auto) 0.0 L, Baso % (Auto) 0.3, Lymph # (Auto) 1.1 L, [place] # (Auto) 0.1, Eos # (Auto) 0.0, Baso # (Auto) 0.01, Absolute Neuts (auto) 1.78 Vital Signs Temp Pulse Resp BP Pulse Ox 10/14/18 07:06 98.0 F 79 20 91/58 L 10/14/18 07:04 98.0 F 79 20 91/58 L 10/13/18 16:24 69 114/77 10/13/18 07:02 98.3 F 85 20 111/58 L 10/12/18 06:56 97.8 F 98 H 18 96/60 L 10/11/18 22:12 98.8 F 87 18 125/82 99 10/11/18 18:03 98.0 F 66 19 99 10/11/18 18:02 98.6 F 83 19 112/69 100 10/11/18 15:00 98.4 F 89 19 123/78 98 10/11/18 12:52 98.0 F 91 H 19 137/80 98 Consultations:: List each consultation separately and include: 1. Reason for request. 2. Findings. 3. Follow-up Consultations: Medical consult appreciated See notes for more information Summary of Hospital Course include:: 1. Description of specific treatment plan utilized for patients during their course of treatmen. 2. Summarize the time- course for resolution of acute symptoms and/or regressed behaviors. 3. Describe issues identified and worked on during hospitalization. 4. Describe medication utilized. 5. Describe medical problems identified and treated. 6. Reassessment of suicide risk Summary of Hospital Course: shortly patient is a 28 y/o F brought in by mother for use of excredrin and vodka, r/o suicidal ideation. pt has h/o borderline personality disorder, possible bipolar disorder. pt has multiple psych admissions in the past, h/o being admitted to [facility] [place] August 2016. pt was uncooperative in ED, refused to be examined, combative. pt signed consent for treatment and was admitted for observation/stabilization of possible depression, possible s/p overdose on excedrine, laxatives and ? darin tonin. Please see admission note for more detailed information. Patient was observed psychiatric inpatient unit for past 72 hours, patient presented relatively well, patient was refusing to take medications, patient took trazodone only at the nighttime yesterday. There is no agitation, no aggression, collateral information was obtained from patient's mother, please see licensed master social worker note for more detailed information. pt was attending groups, was participating in unit activities, no agitation, no aggression, no signs of psychosis. Patient reached maximum effect from this acute hospitalization, patient will be discharged on the following medications: Vistaril 25 mg daily as needed for anxiety Trazodone 50 mg at the nighttime for depression as well as for insomnia Overall pt improved significantly, pt's affect became brighter, mood congruent, patient has realistic future oriented plans "I want to go back to work", pt also does not appear to be psychotic, or anxious, pt was socially appropriate, no behavioral issues, pts insight improved as well and soon pt deemed to be ready for discharge. At the time of the discharge patient was considered to pose no imminent danger t o self or others, will be following up at [facility] health clinic, partial hospitalization program, information about follow up appointment, time and address provided to the pt, (see SW note for more detailed information). It is a patient responsibility to follow up with outpatient cl inic, PMD as well as specialists In case patient will need to obtain results of studies pending at discharge, patient was provided with contact information of Psychiatric Inpatient unit [phone] as well as Medical Record Department [phone], as well as [facility] team [phone]. Patient denies smoking, denies alcohol abuse/addiction pt was provided with prescriptions see medication reconciliation form Pt was educated about safety plan in case of worsening of symptoms or in case of suicidal or homicidal ideation call 911 or go to the nearest ER, also was educated to take meds as prescribed and stay away from drugs, pt verbalized understanding. 10/11/18 15:07 10/11/18 15:07 Lab Results 10/12/18 07:40: TSH 3rd Generation 1.15 10/12/18 07:40: Fasting Glucose 87, Triglycerides 57, Cholesterol 166, LDL Cholesterol Direct 80, HDL Cholesterol 58 10/11/18 20:00: pO2 43, VBG pH 7.41, VBG pCO2 37.0 L, VBG HCO3 23.5, VBG Total CO2 24.6, VBG O2 Sat (Calc) 79.4 H, VBG Base Excess -0.8 L, VBG Potassium 3.6, Glucose 91, Lactate 1.0, FiO2 21.0, Sodium 139.0, Chloride 108.0 H, Venous Blood Potassium 3.6 10/11/18 17:30: Salicylates 17, Acetaminophen 27.0 H 10/11/18 16:15: pO2 48, VBG pH 7.39, VBG pCO2 41.0, VBG HCO3 24.8, VBG Total CO2 26.1, VBG O2 Sat (Calc) 85.9 H, VBG Base Excess -0.2 L, VBG Potassium 3.6, Glucose 97, Lactate 2.0, FiO2 21.0, Crit Value Called To Ana Rosa tai, Crit Value Called By Noy, Blood Gas Notified Time 1624, Sodium 139.0, Chloride 109.0 H, Venous Blood Potassium 3.6 10/11/18 16:06: PT 12.5, INR 1.13, APTT 27.6 10/11/18 15:20: Urine Opiates Screen Negative, Urine Methadone Screen Negative, Ur Barbiturates Screen Negative, Ur Phencyclidine Scrn Negative, Ur Amphetamines Screen Negative, U Benzodiazepines Scrn Negative, U Oth Cocaine Metabols Negative, U Cannabinoids Screen Negative 10/11/18 15:20: Urine Color Yellow, Urine Appearance Sl cloudy, Urine pH 7.0, Ur Specific [place] 1.025, Urine Protein Trace H, Urine Glucose (UA) Negative, Urine Ketones Negative, Urine Blood Negative, Urine Nitrate Negative, Urine Bilirubin Negative, Urine Urobilinogen 0.2, Ur Leukocyte Esterase Trace H, Urine RBC 1 - 3 H, Urine WBC 0 - 2, Ur Epithelial Cells 6 - 8 H, Urine Bacteria Few, Urine Other Uyeast, Urine HCG, Qual Negative 10/11/18 15:07: Alcohol, Quantitative < 10 10/11/18 15:07: Salicylates 17, Acetaminophen 34.0 H 10/11/18 15:07: Sodium 142, Potassium 3.9, Chloride 107, Carbon Dioxide 20 L, Anion Gap 19, BUN 15, Creatinine 0.6 L, Est GFR ( Amer) > 60, Est GFR (Non-Af Amer) > 60, Random Glucose 100, Calcium 9.5, Magnesium 1.6 L, Total Bilirubin 0.4, AST 47 H, ALT 12, Alkaline Phosphatase 46, Total Creatine Kinase 228, Total Protein 7.2, Albumin 4.0, Globulin 3.2, Albumin/Globulin Ratio 1.2 10/11/18 15:07: WBC 3.1 L, RBC 3.87, Hgb 10.2 L, Hct 32.8 L, MCV 84.8, MCH 26.4, MCHC 31.1, RDW 14.7 H, Plt Count 349, MPV 10.2, Neut % (Auto) 58.4, Lymph % (Auto) 37.4 H, [place] % (Auto) 3.9, Eos % (Auto) 0.0 L, Baso % (Auto) 0.3, Lymph # (Auto) 1.1 L, [place] # (Auto) 0.1, Eos # (Auto) 0.0, Baso # (Auto) 0.01, Absolute Neuts (auto) 1.78 Vital Signs Temp Pulse Resp BP Pulse Ox 10/12/18 06:56 97.8 F 98 H 18 96/60 L 10/11/18 22:12 98.8 F 87 18 125/82 99 10/11/18 18:03 98.0 F 66 19 99 10/11/18 18:02 98.6 F 83 19 112/69 100 10/11/18 15:00 98.4 F 89 19 123/78 98 10/11/18 12:52 98.0 F 91 H 19 137/80 98 The adjustment will be following up okay okay perfect thank you - Diagnosis (1) Mood disorder Current Visit: Yes Status: Acute (2) Borderline personality disorder Current Visit: Yes Status: Chronic - Final Diagnosis (DSM 5) Condition upon Discharge: GOOD Disposition: HOME/ ROUTINE Follow-up Treatment Plan: At the time of the discharge patient was considered to pose no imminent danger to self or others, will be following up at [facility], partial hospitalization program, information about follow up appointment, time and address provided to the pt, (see SW note for more detailed information). It is a patient responsibility to follow up with outpatient clinic, PMD as well as specialists In case patient will need to obtain results of studies pending at discharge, patient was provided with contact information of Psychiatric Inpatient unit [phone] as well as Medical Record Department [phone], as well as [facility] team [phone]. Patient denies smoking, denies alcohol abuse/addiction pt was provided with prescriptions see medication reconciliation form Pt was educated about safety plan in case of worsening of symptoms or in case of suicidal or homicidal ideation call 911 or go to the nearest ER, also was educated to take meds as prescribed and stay away from drugs, pt verbalized understanding. Prescriptions/Medication Reconciliation: hydrOXYzine Pamoate [Vistaril] 25 mg PO DAILY PRN #14 cap PRN Reason: Anxiety traZODone [Desyrel] 50 mg PO HS #14 tab - Tobacco Cessation Tobacco Use Status for the last 30 days: Non User Tobacco Use Treatment Practical Counseling Provided: No Tobacco Use Treatment FDA-Approved Cessation Medication Provided: No Reason for not providing: Other (pt does not smoke) Smoking Cessation Prescription was given: No If no, reason for not providing: pt denied smoking - Alcohol or Substance Abuse Does the patient have an Alcohol or Substance Abuse Disorder: No A prescription for an FDA-approved medication for alcohol and drug dependence was given to the patient at discharge: No If no,reason for not providing: pt denied abuse/addiction - Antipsychotic Medications Pt discharged on 2 or more routine antipsychotic medications: No
== END 2018-10-14 16:24 | disposition home or self-care (01) | DRG 430 ==
LOC: ED 12:44 → ERH 17:59 → PSYC 18:41
PROVIDERS: ADMIT Psychiatry & Neurology Psychiatry; ATTEND Psychiatry & Neurology Psychiatry
DX: F39 Unspecified mood [affective] disorder (principal); T74.21XA Adult sexual abuse, confirmed, initial encounter; F60.3 Borderline personality disorder; D64.9 Anemia, unspecified; G47.00 Insomnia, unspecified; M54.9 Dorsalgia, unspecified; Z81.8 Family history of other mental and behavioral disorders; Z91.5 Personal history of self-harm